=== PATIENT | male | born 1935 | race Caucasian/White ===

== ENCOUNTER → 2016-06-23 | Outpatient (CLI) | payer OTHER ==
[2014-07-01 16:09] VITALS: BP 130/65
[2016-06-23 16:27] LABS: BASOPHILS % (AUTO) 0.4 % (0.2-1.0); EOSINOPHILS # (AUTO) 0.2 x10^3/uL (0.0-0.2); EOSINOPHILS % (AUTO) 2.3 % (0.9-2.9); HEMATOCRIT 34.6 % (42.0-54.0); HEMOGLOBIN 11.4 g/dL (13.5-18.0); LYMPHOCYTES # (AUTO) 1.6 X10^3/uL (1.3-2.9); LYMPHOCYTES % (AUTO) 21.8 % (21.0-51.0); MEAN CORPUSCULAR HEMOGLOBIN 31.3 pg (27.0-34.0); MEAN PLATELET VOLUME 10.5 fL (7.4-11.0); MONOCYTES # (AUTO) 0.8 x10^3/uL (0.3-0.8); MONOCYTES % (AUTO) 10.1 % (0.0-13.0); NEUTROPHILS # (AUTO) 4.9 x10^3/uL (2.2-4.8); NEUTROPHILS % (AUTO) 65.4 % (42.0-75.0); PLATELET COUNT 117 X10^3/uL (150.0-450.0); RED BLOOD COUNT 3.64 X10^6/uL (4.7-6.0); RED CELL DISTRIBUTION WIDTH 17.3 % (11.6-16.5); WHITE BLOOD COUNT 7.5 X10^3/uL (3.6-10.0)
[2016-06-23 16:40] LABS: ALANINE AMINOTRANSFERASE 34 Units/L (12-78); ALBUMIN 3.3 g/dL (3.4-5.0); ALKALINE PHOSPHATASE 123 Units/L (46-116); ASPARTATE AMINO TRANSFERASE 16 Units/L (15-37); BLOOD UREA NITROGEN 18 mg/dL (7-18); CALCIUM 8.9 mg/dL (8.5-10.1); CARBON DIOXIDE 28.1 mmol/L (21-32); CHLORIDE 101 mmol/L (98-107); COR CA(FOR HYPOALB) 9.5 mg/dL (8.5-10.1); CREATININE 1.07 mg/dL (0.70-1.30); GLUCOSE 95 mg/dL (65-99); SODIUM 136 mmol/L (136-145); TOTAL PROTEIN 7.2 g/dL (6.4-8.2); eGFR BLACK RACES > 60 (>60); eGFR NON BLACK RACES > 60 (>60)
== END ==
LOC: LAB 15:57
PROVIDERS: ATTEND Internal Medicine Hematology & Oncology
DX: C90.00 Multiple myeloma not having achieved remission (principal)
CPT/HCPCS: 36415; 80053; 85025

== ENCOUNTER → 2016-11-18 | Outpatient (CLI) | payer OTHER ==
[2014-07-01 16:09] VITALS: BP 130/65
[2016-11-18 17:47] LABS: BASOPHILS % (AUTO) 0.4 % (0.2-1.0); EOSINOPHILS # (AUTO) 0.2 x10^3/uL (0.0-0.2); HEMATOCRIT 37.1 % (42.0-54.0); HEMOGLOBIN 12.3 g/dL (13.5-18.0); LYMPHOCYTES # (AUTO) 1.9 X10^3/uL (1.3-2.9); LYMPHOCYTES % (AUTO) 32.4 % (21.0-51.0); MEAN CORPUSCULAR HEMOGLOBIN 31.2 pg (27.0-34.0); MEAN CORPUSCULAR HGB CONC 33.3 g/dL (33.0-35.0); MEAN CORPUSCULAR VOLUME 93.6 fL (80.0-100.0); MEAN PLATELET VOLUME 9.3 fL (7.4-11.0); MONOCYTES # (AUTO) 0.4 x10^3/uL (0.3-0.8); NEUTROPHILS # (AUTO) 3.4 x10^3/uL (2.2-4.8); NEUTROPHILS % (AUTO) 57.2 % (42.0-75.0); PLATELET COUNT 156 X10^3/uL (150.0-450.0); RED BLOOD COUNT 3.96 X10^6/uL (4.7-6.0); RED CELL DISTRIBUTION WIDTH 16.5 % (11.6-16.5)
[2016-11-18 18:01] LABS: ALANINE AMINOTRANSFERASE 24 Units/L (12-78); ALBUMIN 3.4 g/dL (3.4-5.0); ALKALINE PHOSPHATASE 124 Units/L (46-116); ASPARTATE AMINO TRANSFERASE 24 Units/L (15-37); BLOOD UREA NITROGEN 20 mg/dL (7-18); CALCIUM 10.1 mg/dL (8.5-10.1); CARBON DIOXIDE 33.3 mmol/L (21-32); CHLORIDE 100 mmol/L (98-107); CREATININE 1.36 mg/dL (0.70-1.30); GLUCOSE 96 mg/dL (65-99); SODIUM 138 mmol/L (136-145); TOTAL PROTEIN 9.9 g/dL (6.4-8.2); eGFR BLACK RACES > 60 (>60); eGFR NON BLACK RACES 53 (>60)
[2016-11-23 07:35] LABS: IMMUNOGLOBULIN M 5 mg/dL (35-263)
[2016-11-23 15:22] LABS: LAMBDA LIGHT CHAIN 0.72 mg/dL (0.57-2.63)
[2016-11-24 00:19] LABS: ALBUMIN (SPEP) 3.85 g/dL (3.75-5.01); ALPHA-1 (SPEP) 0.29 g/dL (0.19-0.46); ALPHA-2 (SPEP) 1.43 g/dL (0.48-1.05); GAMMA (SPEP) 0.57 g/dL (0.62-1.51)
[2016-11-24 07:34] LABS: KAPPA/LAMBDA RATIO 201.39 (0.26-1.65)
== END ==
LOC: LAB 17:04
PROVIDERS: ATTEND Internal Medicine Hematology & Oncology
DX: C90.00 Multiple myeloma not having achieved remission (principal)
CPT/HCPCS: 36415; 80053; 82784; 83883; 84165; 85025; 86334

== ENCOUNTER → 2017-02-09 | Outpatient (CLI) | payer OTHER ==
[2014-07-01 16:09] VITALS: BP 130/65
[2017-02-09 17:55] LABS: BASOPHILS # (AUTO) 0.1 X10^3/uL (0.0-0.1); BASOPHILS % (AUTO) 1.2 % (0.2-1.0); EOSINOPHILS # (AUTO) 0.3 x10^3/uL (0.0-0.2); EOSINOPHILS % (AUTO) 4.4 % (0.9-2.9); HEMATOCRIT 35.1 % (42.0-54.0); HEMOGLOBIN 11.7 g/dL (13.5-18.0); LYMPHOCYTES # (AUTO) 2.8 X10^3/uL (1.3-2.9); MEAN CORPUSCULAR HEMOGLOBIN 32.3 pg (27.0-34.0); MEAN CORPUSCULAR HGB CONC 33.4 g/dL (33.0-35.0); MEAN CORPUSCULAR VOLUME 96.6 fL (80.0-100.0); MEAN PLATELET VOLUME 9.3 fL (7.4-11.0); MONOCYTES # (AUTO) 0.7 x10^3/uL (0.3-0.8); MONOCYTES % (AUTO) 11.4 % (0.0-13.0); NEUTROPHILS # (AUTO) 2.2 x10^3/uL (2.2-4.8); PLATELET COUNT 120 X10^3/uL (150.0-450.0); RED BLOOD COUNT 3.63 X10^6/uL (4.7-6.0); RED CELL DISTRIBUTION WIDTH 17.8 % (11.6-16.5)
[2017-02-09 18:03] LABS: CARBON DIOXIDE 26.4 mmol/L (21-32); CREATININE 1.64 mg/dL (0.70-1.30)
[2017-02-09 18:05] LABS: ALBUMIN 2.9 g/dL (3.4-5.0); TOTAL PROTEIN 7.6 g/dL (6.4-8.2)
[2017-02-09 18:32] LABS: CALCIUM 13.1 mg/dL (8.5-10.1)
[2017-02-15 04:39] LABS: LAMBDA LIGHT CHAIN 1.41 mg/dL (0.57-2.63)
[2017-02-15 06:08] LABS: IMMUNOGLOBULIN M <5 mg/dL (35-263)
[2017-02-15 06:09] LABS: KAPPA/LAMBDA RATIO 8.94 (0.26-1.65)
[2017-02-15 16:08] LABS: ALBUMIN (SPEP) 3.29 g/dL (3.75-5.01); ALPHA-1 (SPEP) 0.44 g/dL (0.19-0.46); ALPHA-2 (SPEP) 1.16 g/dL (0.48-1.05); GAMMA (SPEP) 1.04 g/dL (0.62-1.51)
== END | disposition home or self-care (01) | DRG 841 ==
LOC: LAB 17:27
PROVIDERS: ATTEND Internal Medicine Hematology & Oncology
DX: C90.00 Multiple myeloma not having achieved remission (principal); Q79.6 Ehlers-Danlos syndromes; G25.81 Restless legs syndrome; I87.2 Venous insufficiency (chronic) (peripheral); G90.4 Autonomic dysreflexia; K58.0 Irritable bowel syndrome with diarrhea; D86.89 Sarcoidosis of other sites; R06.02 Shortness of breath; M77.11 Lateral epicondylitis, right elbow
CPT/HCPCS: 36415; 80053; 82784; 83883; 84165; 85025; 86334